=== PATIENT | female | born 1970 | race Caucasian/White ===

== ENCOUNTER → 2018-02-01 12:07 | Outpatient (CLI) | payer OTHER, SELFPAY ==
--- NOTE | 2018-02-01 | DI.MG.S_ITS ---
BILATERAL DIGITAL SCREENING MAMMOGRAM 3D/2D WITH CAD: 02/01/2018 CLINICAL: Routine screening. Comparison is made to exams dated: 12/08/2015 mammogram, 07/02/2011 mammogram, and 06/22/2010 mammogram - [facility]. The tissue of both breasts is heterogeneously dense. This may lower the sensitivity of mammography. Current study was also evaluated with a Computer Aided Detection (CAD) system. No significant masses, calcifications, or other findings are seen in either breast. There has been no significant interval change. IMPRESSION: NEGATIVE There is no mammographic evidence of malignancy. A 1 year screening mammogram is recommended. This exam was interpreted at Station ID: [id number]. NOTE: For mammograms, a report in lay terms will be sent to the patient. Approximately 15% of breast malignancies will not be visualized mammographically. In the management of a palpable breast mass, a negative mammogram must not discourage biopsy of a clinically suspicious lesion. Electronically Signed By: Jessy vargas/betty:02/03/2018 11:54:09 letter sent: Normal Exam ACR BI-RADS Category 1: Negative [id number]
== END ==
DX: Z12.31 Encounter for screening mammogram for malignant neoplasm of breast (principal)
CPT/HCPCS: 77063; 77067

== ENCOUNTER 2019-03-12 18:33 | Emergency (ER) | payer SELFPAY ==
--- NOTE | 2019-03-12 18:47 | ED_ITS ---
HPI - Abdominal Pain General Chief Complaint: Abdominal Pain Stated Complaint: feels like pancreas is going to explode Time Seen by Provider: 03/12/19 18:42 Source: patient and family Mode of arrival: Ambulatory Limitations: no limitations History of Present Illness HPI narrative: 49-year-old female former smoker and daily drinker presents with a chief complaint of severe epigastric and left upper quadrant pain for the past month or so. She has had nausea and vomiting and occasional loose stool. She states her symptoms are worse when she drinks or eats. She is not dizzy nor weak or lightheaded. She denies any chest pain or shortness of breath. She denies fever or chills. She has a history of pancreatitis and states this feels the same. Her pain is worse when she moves and improves with rest. MD complaint: abdominal pain Onset (ago): week(s) Pain Consistency: constant Location: epigastric Severity: severe Quality: stabbing Radiation: LUQ Relieving factors: rest Exacerbating factors: eating and movement Context: history of similar episodes Associated symptoms: nausea and vomiting Related Data Previous Rx's Medication Instructions Recorded hydrocodone-acetaminophen 1 tab PO Q4-6H PRN #10 tab 03/12/19 ondansetron 4 mg PO TID-QID PRN #10 tab 03/12/19 Allergies Allergy/AdvReac Type Severity Reaction Status Date / Time No Known Drug Allergies Allergy Verified 02/21/18 09:41 Review of Systems Constitutional Constitutional: Denies chills, Denies fatigue, Denies fever(s), Denies frequent falls, Denies lethargy and Denies weakness Eyes Eyes: Denies change in vision, Denies eye discharge, Denies irritation and Denies loss of vision ENT Ears, Nose, Mouth, and Throat: Denies change in voice, Denies dizziness, Denies neck pain, Denies sore throat and Denies throat swelling Cardiovascular Cardiovascular: Denies chest pain, Denies irregular heart rhythm, Denies lig htheadedness, Denies palpitations, Denies dyspnea, Denies dyspnea on exertion and Denies orthopnea Respiratory Respiratory: Denies cough, Denies dyspnea, Denies dyspnea on exertion and Denies wheezing Gastrointestinal Gastrointestinal: Reports abdominal pain, Denies change in bowel habits, Denies diarrhea, Reports nausea and Reports vomiting Genitourinary Genitourinary: Denies hematuria, Denies flank pain, Denies urinary incontinence and Denies urinary urgency Musculoskeletal Musculoskeletal: Denies back pain, Denies muscle weakness, Denies neck pain, Denies numbness and Denies tingling Integumentary/Breasts Skin/Breast: Denies pruritus, Denies erythema, Denies rash and Denies wounds Neurologic Neurologic: Denies behavioral changes, Denies confusion, Denies dizziness, Denies frequent falls, Denies loss of vision, Denies numbness, Denies tingling and Denies weakness Psychiatric Psychiatric: Denies anxiety, Denies behavioral changes, Denies confusion, Denies depression, Denies homicidal ideation and Denies suicidal ideation Endocrine Endocrine: Denies fatigue, Denies flushing and Denies palpitations Hematologic/Lymphatic Hematologic/Lymphatic: Denies easy bruising Allergic/Immunologic Allergic/Immunologic: Denies urticaria, Denies throat swelling and Denies wheezi ng Patient History Medical History Chicken pox (Resolved ~1977) Chronic back pain (Chronic ~2010) Surgical History Anesthesia (Resolved) Status post delivery (07/26/92) Family History Brother Age: 44 Diabetes mellitus Grandmother Diabetes mellitus Stroke Mother Age: 67 Diabetes mellitus Grandmother Age: 88 Diabetes mellitus Grandfather No problems noted. Exam Narrative Exam Narrative: GENERAL: [49] year old patient appears stated age. Well- nourished, well-developed patient, in mild distress. Rubbing her upper abdomen, holding an empty emesis bag HEAD: Atraumatic. Normocephalic. EYES: Pupils equal round and reactive. Extraocular motions intact. No scleral icterus. No injection or drainage. ENT: Nose without bleeding, purulent drainage. Throat without erythema, tonsillar hypertrophy or exudate. Airway patent. NECK: Trachea midline. Non tender CARDIOVASCULAR: Regular rate and rhythm without murmurs, gallops, or rubs. RESPIRATORY: Clear to auscultation. Breath sounds equal bilaterally. No wheezes, rales, or rhonchi. GASTROINTESTINAL: Abdomen soft, tender in the epigastric, nondistended. EXTREMITIES: No edema or joint tenderness. BACK: Nontender without deformity or crepitance. No flank tenderness. NEURO: AOx3. SKIN: No rash or erythema of visible areas Initial Vital Signs Initial Vital Signs: Vital Signs Temperature 98.5 F 03/12/19 19:00 Pulse Rate 103 H 03/12/19 19:00 Respiratory Rate 19 03/12/19 19:00 Blood Pressure 135/93 H 03/12/19 19:00 Pulse Oximetry 99 03/12/19 19:00 Course Orders Ordered: ED Orders 03/12/19 19:10 Complete Blood Count AUTO DIFF Stat Comprehensive Metabolic Panel Stat Ethanol (ETOH) Stat Lipase Stat Prothrombin Time INR Stat 03/12/19 19:43 US abdomen limited Stat Discontinued Medications Hydrocodone Bitart/Acetaminophen (Vicodin 5/325 Prepack) 1 bottle MISC SEEINSTR ONE Stop: 03/12/19 20:41 Last Admin: 03/12/19 20:59 Dose: 1 bottle Documented by: HOLLIS Hydromorphone HCl (Dilaudid) 0.5 mg IV NOW ONE Stop: 03/12/19 19:03 Last Admin: 03/12/19 19:29 Dose: 0.5 mg Documented by: JOSE DAVID Sodium Chloride (Normal Saline 0.9%) 500 mls @ 1,000 mls/hr IV BOLUS ONE Stop: 03/12/19 19:31 Last Infusion: 03/12/19 20:39 Dose: 1,000 mls/hr Documented by: JOSE DAVID Infusion: 03/12/19 20:38 Dose: 0 mls/hr Documented by: JOSE DAVID Admin: 03/12/19 19:29 Dose: 1,000 mls/hr Documented by: DORISR Ondansetron HCl (Zofran) 4 mg IV NOW ONE Stop: 03/12/19 19:03 Last Admin: 03/12/19 19:29 Dose: 4 mg Documented by: DORISR Ondansetron HCl (Zofran Odt Prepack) 1 bottle MISC SEEINSTR ONE Stop: 03/12/19 20:41 Last Admin: 03/12/19 20:58 Dose: 1 bottle Documented by: HOLLIS Pantoprazole Sodium (Protonix) 40 mg IV NOW ONE Stop: 03/12/19 19:03 Last Admin: 03/12/19 19:29 Dose: 40 mg Documented by: BTONER Vital Signs Vital signs: Vital Signs - 8 hr 03/12/19 19:00 03/12/19 20:30 03/12/19 21:00 Temperature 98.5 F Pulse Rate 103 H 74 78 Respiratory Rate 19 16 Blood Pressure 135/93 H 128/88 Blood Pressure [Left Arm] 128/88 Pulse Oximetry 99 96 MDM - Abdominal Pain Lab Data Result diagrams: 03/12/19 19:10 03/12/19 19:10 Labs: Lab Results 03/12/19 03/12/19 03/12/19 Range/Units 19:10 19:10 19:10 WBC 5.6 (4.5-11.0) X10^3/uL RBC 4.07 (4.0-5.2) X10^6/uL Hgb 12.5 (12.0-16.0) g/dL Hct 36.3 (36-46) % MCV 89.1 (80-100) fL MCH 30.6 (26-34) PG MCHC 34.4 (30-36) % RDW 17.3 H (11.6-14.8) % Plt Count 286 (150-400) X10^3/uL Neut % (Auto) 55.0 (50-75) % Lymph % (Auto) 32.6 (25-40) % [place] % (Auto) 9.8 (3-14) % Eos % (Auto) 1.2 L (2-4) % Baso % (Auto) 1.4 (0-2) % Neut # (Auto) 3100 (2939-1782) /uL Lymph # (Auto) 1800 (9566-7050) /uL [place] # (Auto) 500 (0-900) /uL Eos # (Auto) 100 (0-450) /uL Baso # (Auto) 100 (0-100) /uL PT 9.6 L (10.1-12.7) SECONDS INR 0.8 L (0.9-1.3) Sodium 145 (137-145) mmol/L Potassium 4.1 (3.4-5.1) mmol/L Chloride 107 (98-107) mmol/L Carbon Dioxide 25 (22-32) mmol/L BUN 18 H (7-17) mg/dL Creatinine 1.10 H (0.52-1.04) mg/dL Estimated GFR 52.8 L (>60) mL/min BUN/Creatinine Ratio 16.4 (6-22) Glucose 101 H (70-100) mg/dL Calcium 8.8 (8.4-10.2) mg/dL Total Bilirubin 0.4 (0.2-1.3) mg/dL AST 89 H (14-36) IU/L ALT 34 (<35) IU/L Alkaline Phosphatase 82 (38-126) U/L Total Protein 7.9 (6.3-8.2) g/dL Albumin 4.7 (3.5-5.0) g/dL Globulin 3.2 (1.7-4.1) g/dL Albumin/Globulin Ratio 1.5 (1.0-2.8) Lipase 495 H (23-300) U/L Ethyl Alcohol ( - 10) mg/dL 03/12/19 Range/Units 19:10 WBC (4.5-11.0) X10^3/uL RBC (4.0-5.2) X10^6/uL Hgb (12.0-16.0) g/dL Hct (36-46) % MCV (80-100) fL MCH (26-34) PG MCHC (30-36) % RDW (11.6-14.8) % Plt Count (150-400) X10^3/uL Neut % (Auto) (50-75) % Lymph % (Auto) (25-40) % [place] % (Auto) (3-14) % Eos % (Auto) (2-4) % Baso % (Auto) (0-2) % Neut # (Auto) (9711-4033) /uL Lymph # (Auto) (0560-2490) /uL [place] # (Auto) (0-900) /uL Eos # (Auto) (0-450) /uL Baso # (Auto) (0-100) /uL PT (10.1-12.7) SECONDS INR (0.9-1.3) Sodium (137-145) mmol/L Potassium (3.4-5.1) mmol/L Chloride (98-107) mmol/L Carbon Dioxide (22-32) mmol/L BUN (7-17) mg/dL Creatinine (0.52-1.04) mg/dL Estimated GFR (>60) mL/min BUN/Creatinine Ratio (6-22) Glucose (70-100) mg/dL Calcium (8.4-10.2) mg/dL Total Bilirubin (0.2-1.3) mg/dL AST (14-36) IU/L ALT (<35) IU/L Alkaline Phosphatase (38-126) U/L Total Protein (6.3-8.2) g/dL Albumin (3.5-5.0) g/dL Globulin (1.7-4.1) g/dL Albumin/Globulin Ratio (1.0-2.8) Lipase (23-300) U/L Ethyl Alcohol 294 H ( - 10) mg/dL MDM Narrative Medical decision making narrative: Patient with epigastric pain and strong history of alcohol abuse presents with 1 month of symptoms. The ultrasound notes a slightly dilated common bile duct which mentions stone cannot be ruled out, however bilirubin and alk-phos are unremarkable. Patient has near complete resolution of symptoms after above stated therapies. Patient has had her questions answered to her apparent satisfaction and though ETOH is elevated she has ability to demonstrate clear capacity. She speaks clearly without slurring of speech, understands diagnosis and return precautions and walks with a steady gait. Discharge Plan Departure Patient Disposition: Home Clinical Impression: Pancreatitis, acute Qualifiers: Pancreatitis type: alcohol induced Acute pancreatitis complication: unspecified Qualified Code(s): K85.20 - Alcohol induced acute pancreatitis without necrosis or infection Discharge Date/Time: 03/12/19 21:03 Instructions: DI for Pancreatitis Activity Restrictions/Additional Instructions: *You have been diagnosed with [ Acute Alcoholic Pancreatitis, with likely gastritis ] *What to do: *Take medications as directed *Follow up with your primary care provider in 2-3 days, call for an appointment. Let them know you were seen in the Emergency Department and that we ask that you be seen in follow up *Return to ER if you should have any new, worsening or concerning symptoms 1. Drink plenty of fluids with frequent small sips. 2. For the next 24 hours a clear liquid diet is advised. After that please employ a brat diet which would include bananas, rice, apples, toast. 3. Please take medications as directed. 4. Please follow-up with your doctor in the next 1-2 days. Call the office for an appointment. 5. Please return to the emergency Department for any worsening or persistent symptoms, such as increasing pain or fever. Prescriptions: New hydrocodone-acetaminophen 5-325 mg tablet 1 tab PO Q4-6H PRN (Reason: pain) Qty: 10 RF: 0 ondansetron 4 mg tablet,disintegrating 4 mg PO TID-QID PRN (Reason: nausea and vomiting) Qty: 10 RF: 0 Referrals: [facility] [Outside] Aguilar Garcia MD [Physician] -
[2019-03-12 19:00] VITALS: BP 135/93; PULSE 103; RESP 19; TEMP 36.9; O2SAT 99
[2019-03-12 19:25] LABS: Add Manual Diff / Slide Review NO; Basophils Absolute Auto 100 /uL (0-100); Basophils Percent Auto 1.4 % (0-2); Eosinophils Absolute Auto 100 /uL (0-450); Eosinophils Percent Auto 1.2 % (2-4); Hematocrit 36.3 % (36-46); Hemoglobin 12.5 g/dL (12.0-16.0); Lymphocytes Absolute Auto 1800 /uL (1100-4500); Lymphocytes Percent Auto 32.6 % (25-40); Mean Corpuscular HGB Conc 34.4 % (30-36); Mean Corpuscular Hemoglobin 30.6 PG (26-34); Mean Corpuscular Volume 89.1 fL (80-100); Monocytes Absolute Auto 500 /uL (0-900); Monocytes Percent Auto 9.8 % (3-14); Neutrophils Absolute Auto 3100 /uL (1500-7000); Platelet Count 286 X10^3/uL (150-400); Red Blood Cell Count 4.07 X10^6/uL (4.0-5.2); Red Cell Distribution Width 17.3 % (11.6-14.8); White Blood Cell Count 5.6 X10^3/uL (4.5-11.0)
[2019-03-12] MEDS: HYDROMORPHONE 0.5 MG INJ IV (19:29)
[2019-03-12] MEDS: ONDANSETRON 4 MG/2 ML INJ IV (19:29)
[2019-03-12] MEDS: PANTOPRAZOLE 40 MG VIAL IV (19:29)
[2019-03-12] MEDS: SODIUM CHLORIDE 0.9% 500 ML 1000 ML IV (19:29)
[2019-03-12 19:36] LABS: Alanine Aminotransferase 34 IU/L (<35); Albumin 4.7 g/dL (3.5-5.0); Albumin Globulin Ratio 1.5 (1.0-2.8); Alkaline Phosphatase 82 U/L (38-126); Aspartate Aminotransferase 89 IU/L (14-36); BUN Creatinine Ratio 16.4 (6-22); Bilirubin Total 0.4 mg/dL (0.2-1.3); Blood Urea Nitrogen 18 mg/dL (7-17); Calcium 8.8 mg/dL (8.4-10.2); Carbon Dioxide 25 mmol/L (22-32); Chloride 107 mmol/L (98-107); Estimated Glomerular Filt Rate 52.8 mL/min (>60); Ethanol (ETOH) 294 mg/dL; Globulin 3.2 g/dL (1.7-4.1); Glucose 101 mg/dL (70-100); HEMOLYSIS < 15 (0-50); Lipase 495 U/L (23-300); Potassium 4.1 mmol/L (3.4-5.1); Sodium 145 mmol/L (137-145); Total Protein 7.9 g/dL (6.3-8.2)
--- NOTE | 2019-03-12 19:43 | DI.US.S_ITS ---
PROCEDURE: US ABDOMEN LIMITED INDICATIONS: severe epigastric pain, elevated Lipase TECHNIQUE: Real-time focused scanning was performed of the gallbladder, with image documentation. COMPARISON: None. FINDINGS: The gallbladder is distended with multiple mobile echogenic non-shadowing foci compatible with gallstones or echogenic sludge. No gallbladder wall thickening or pericholecystic fluid. No reported sonographic Smith's sign. No definite intrahepatic biliary ductal dilatation. There is dilatation of the extrahepatic ducts, with the common bile duct measuring up to 9 mm. No discrete intraluminal stones visualized. The visualized pancreas demonstrates no peripancreatic fluid collections. The pancreatic duct measures up to approximately 3 mm. IMPRESSION: 1. Cholelithiasis or biliary sludge in the gallbladder without definite evidence of cholecystitis. 2. Biliary ductal dilatation with the common bile duct measuring up to 9 mm. A distal obstructing stone cannot be excluded. Recommend correlation with laboratory values and if indicated further evaluation may be obtained with MRCP. Dictated by: Yasmany Jerez M.D. on 03/12/2019 at 21:24 Approved by: Yasmany Jerez M.D. on 03/12/2019 at 21:28
[2019-03-12 19:45] LABS: INR 0.8 (0.9-1.3); Prothrombin Time 9.6 SECONDS (10.1-12.7)
[2019-03-12 20:30] VITALS: BP 128/88; PULSE 74
--- NOTE | 2019-03-12 20:55 | PC.NURSE ---
pt states thinks she has pancreatitis due to alcohol use.
[2019-03-12] MEDS: ONDANSETRON 4 MG ODT PREPACK 1 BOTTLE MISC (20:58)
[2019-03-12] MEDS: HYDROCODONE/ACET 5/325 PREPACK 1 BOTTLE MISC (20:59)
[2019-03-12 21:00] VITALS: BP 128/88; PULSE 78; RESP 16; O2SAT 96
== END 2019-03-12 21:03 | disposition home or self-care (01) ==
PROVIDERS: Emergency Provider Emergency Medicine
DX: K85.20 Alcohol induced acute pancreatitis without necrosis or infection (principal); R11.2 Nausea with vomiting, unspecified
CPT/HCPCS: 36415; 76705; 80053; 80320; 83690; 85025; 85610; 96361; 96374; 96375; 99283; 99284; C9113; J1170; J2405

== ENCOUNTER 2020-07-03 15:18 | Emergency (ER) | payer SELFPAY ==
[2020-07-03] VITALS (9 sets, daily range): BP systolic 117–154; BP diastolic 65–87; PULSE 85–109; RESP 18–26; TEMP 36.6; O2SAT 96–99
--- NOTE | 2020-07-03 15:44 | DI.RAD.S_ITS ---
PROCEDURE: XR CHEST 1V INDICATIONS: chest pain, GI bleed TECHNIQUE: One view of the chest was acquired. COMPARISON: [facility], , CHEST 2 VIEW, 04/16/2013, 14:47. FINDINGS: Surgical changes and devices: None. Lungs and pleura: Lungs are clear. No pleural effusions or pneumothorax. Mediastinum: Mediastinal contours appear normal. Heart size is normal. Bones and chest wall: No suspicious bony lesions. Overlying soft tissues appear unremarkable. IMPRESSION: No acute cardiopulmonary abnormality. Dictated by: Kin Fernando M.D. on 07/03/2020 at 15:13 Approved by: Kin Fernando M.D. on 07/03/2020 at 15:14
[2020-07-03] MEDS: SODIUM CHLORIDE 0.9% 1,000 ML 1000 ML IV (15:50)
[2020-07-03 15:55] LABS: Add Manual Diff / Slide Review NO; Basophils Absolute Auto 100 /uL (0-100); Basophils Percent Auto 0.7 % (0-2); Eosinophils Absolute Auto 0 /uL (0-450); Eosinophils Percent Auto 0.2 % (2-4); Hemoglobin 13.3 g/dL (12.0-16.0); Lymphocytes Absolute Auto 1600 /uL (1100-4500); Lymphocytes Percent Auto 20.8 % (25-40); Mean Corpuscular HGB Conc 33.3 % (30-36); Mean Corpuscular Hemoglobin 29.8 PG (26-34); Mean Corpuscular Volume 89.5 fL (80-100); Monocytes Absolute Auto 500 /uL (0-900); Monocytes Percent Auto 6.3 % (3-14); Neutrophils Absolute Auto 5600 /uL (1500-7000); Platelet Count 310 X10^3/uL (150-400); Red Blood Cell Count 4.46 X10^6/uL (4.0-5.2); Red Cell Distribution Width 15.6 % (11.6-14.8); White Blood Cell Count 7.7 X10^3/uL (4.5-11.0)
[2020-07-03] MEDS: ONDANSETRON 4 MG/2 ML INJ IV (16:00)
[2020-07-03] MEDS: PANTOPRAZOLE 40 MG VIAL IV (16:00)
[2020-07-03 16:02] LABS: Prothrombin Time 11.3 SECONDS (10.1-12.7)
[2020-07-03 16:05] LABS: PTT Partial Thromboplastin Tim 30 SECONDS (26.4-36.2)
[2020-07-03 16:06] LABS: Alanine Aminotransferase 13 IU/L (<35); Albumin Globulin Ratio 1.4 (1.0-2.8); Alkaline Phosphatase 76 U/L (38-126); Aspartate Aminotransferase 33 IU/L (14-36); BUN Creatinine Ratio 16.9 (6-22); Bilirubin Total 0.5 mg/dL (0.2-1.3); Blood Urea Nitrogen 12 mg/dL (7-17); Calcium 9.2 mg/dL (8.4-10.2); Carbon Dioxide 20 mmol/L (22-32); Chloride 105 mmol/L (98-107); Estimated Glomerular Filt Rate > 60.0 mL/min (>60); Globulin 3.5 g/dL (1.7-4.1); Glucose 113 mg/dL (70-100); HEMOLYSIS 24 (0-50); Lipase 303 U/L (23-300); Potassium 4.6 mmol/L (3.4-5.1); Sodium 142 mmol/L (137-145); Total Protein 8.5 g/dL (6.3-8.2)
[2020-07-03] MEDS: PANTOPRAZOLE 80 MG in SODIUM CHLORIDE 0.9% 100 ML 10 ML IV (16:10)
[2020-07-03 16:28] LABS: Ethanol (ETOH) 346 mg/dL
--- NOTE | 2020-07-03 16:32 | DI.CT.S_ITS ---
PROCEDURE: CT ABDOMEN PELVIS W CON INDICATIONS: GI bleed, ETOH user, varieces? TECHNIQUE: After the administration of intravenous contrast, 5 mm thick sections acquired from the diaphragm to the symphysis. 5 mm coronal and sagittal reformats were acquired. For radiation dose reduction, the following was used: automated exposure control, adjustment of mA and/or kV according to patient size. COMPARISON: None. FINDINGS: Image quality: Excellent. ABDOMEN: Lung bases: Lung bases are clear. Heart size is normal. Solid organs: Liver is normal in size. Hepatic steatosis suspected. Gallbladder is decompressed. Biliary system is non dilated. Pancreas enhances normally. Spleen is normal in size and enhancement. No adrenal nodules. Kidneys demonstrate normal size and enhancement, without hydronephrosis. Peritoneum and bowel: Bowel loops demonstrate normal wall thickness and caliber. Normal appendix. Diverticulosis. No diverticulitis. No free fluid or air. Nodes and vessels: No retroperitoneal or mesenteric adenopathy by size criteria. Aorta and inferior vena cava are normal in size. Portal vein is patent. Question of recannulization of the periumbilical vein. Miscellaneous: No ventral hernias. PELVIS: Genitourinary: Bladder wall thickness is normal. Anteverted uterus. Miscellaneous: No inguinal hernias or adenopathy. Bones: No suspicious bony lesions. T12 bone island. Bilateral L5 pars defect with 7 mm of anterolisthesis of L5 on S1. No vertebral body compression fractures. IMPRESSION: No acute abnormality identified. No free fluid. Question of recannulization of the periumbilical vein. No definite varices. Dictated by: Kin Fernando M.D. on 07/03/2020 at 16:58 Approved by: Kin Fernando M.D. on 07/03/2020 at 17:04
--- NOTE | 2020-07-03 16:34 | ED.GIBLEED ---
HPI - GI Bleed <EVIE Lugo - Last Filed: 07/03/20 21:22> General Chief complaint: GI Bleed Stated complaint: vomiting blood, buring BM, past week Time Seen by Provider: 07/03/20 15:31 Source: patient Mode of arrival: Ambulatory Limitations: no limitations History of Present Illness HPI Narrative: This is a 50 year female, smoker, who has history of daily alcohol use presents to ED with ex- with chief complain of epigastric burning discomfort, nausea, vomiting, diarrhea for 7 days. Patient reports had dark color blood with emesis during last 3 days. Patient reports has emesis upto 3 times a day. She is not sure of blood in stools. Patient denies ill contacts, family member has similar symptoms, eating bad food, recent foreign travel, recent camping or is living in a farm. Patient had a similar symptoms about 1-2 years ago but was not hospitalized or had transfusion in the past. Patient denies taking anticoagulants or antiplatelets, or chronic NSAID use. Patient denies fever, chills. Reports epigastric pain with mild short of breath and lightheaded. Patient also reports urinary symptoms such as dysuria, urinary frequency, urgency. Patient admits drinking 2 glasses of wine this morning and difficulty obtaining ETOH average consumption history. Related Data Previous Rx's Medication Instructions Recorded hydrocodone-acetaminophen 1 tab PO Q4-6H PRN #10 tab 03/12/19 ondansetron 4 mg PO TID-QID PRN #10 tab 03/12/19 ondansetron 4 mg PO Q8-12H PRN #10 tab 07/03/20 pantoprazole [Protonix] 40 mg PO DAILY #14 tab 07/03/20 Allergies Allergy/AdvReac Type Severity Reaction Status Date / Time No Known Drug Allergies Allergy Verified 02/21/18 09:41 Review of Systems <EVIE Lugo - Last Filed: 07/03/20 21:22> Review of Systems Narrative: General: Denies fever, chills, fatigue, malaise, sweats. HEENT: Denies sinus pain, ear pain, sore throat, difficulty swallowing, dizziness. Respiratory: See HPI Cardiovascular: Denies chest pain, palpitations, orthopnea, edema. Gastrointestinal: See HPI : See HPI Musculoskeletal: Denies weakness, joint pain or bony pain. Skin: Denies rash, skin lesions, or other. Neurologic: Denies weakness, headache, numbness, change in speech, confusion, seizures, incoordination. Psychiatric: No concerning psychosocial issues. 12-point review of systems is negative except for those stated above. Patient History <EVIE Lugo - Last Filed: 07/03/20 21:22> Medical History Chicken pox (~1977) Chronic back pain (~2010) Surgical History Anesthesia Status post delivery (07/26/92) Family History Brother Age: 45 Diabetes mellitus Grandmother Diabetes mellitus Stroke Mother Age: 68 Diabetes mellitus Grandmother Age: 89 Diabetes mellitus Grandfather No problems noted. Social History Smoking Status: Current some day smoker Smoking Status: Current some day smoker alcohol intake frequency: 3 or more drinks per day Exam <EVIE Lugo - Last Filed: 07/03/20 21:22> Narrative Exam Narrative: GEN: Alert, oriented x 3, well nourished, and in moderate discomfort with facial grimacing. ETOH on breath. Head: Normal cephalic, atraumatic. No scalp or temporal tenderness, palpable mass or rash. EYES: Pupils are equal, round, and reactive to light and accommodation. Extraocular muscles are intact bilaterally. There is no subconjunctival hemorrhage, exudate and sclera non-icteric. ENT: Hearing grossly intact. Mucous membrane dry, no mucosal lesion. Throat without erythema, tonsillar hypertrophy or exudate. Uvula in midline, airway patent. Neck: Trachea in midline. No JVD, non-tender without lymphadenopathy. No masses or thyroid megaly. Supple, non-tender and no meningeal signs. CARDIAC: Normal regular rate and rhythm without murmurs, gallops, or rubs. No chest wall tenderness. No peripheral edema, cyanosis or pallor. Capillary refill is less than 2 seconds. RESPIRATORY: Lungs are clear to auscultate bilaterally. No cough, wheezes, rales, or rhonchi. No stridor, respiratory distress, increase work of breathing, or accessary muscle used. ABD: Abdomen soft and non-distended. Epigastric tender to palpate. No guarding. Bowel sounds are normal in all 4 quadrants. There is no palpable masses or organomegaly. EXT: Full painless ROM of all extremities with no loss of sensation, strength, effusion or edema. SKIN: Warm, dry, normal color for patient. No erythema, lesions or rash over visible areas. BACK: Nontender without deformity or crepitance. No flank tenderness. NEUROLOGICAL: Alert and oriented to place, time and person. Sensation and motor function intact bilaterally. No facial droops, dysphasia. Initial Vital Signs Initial Vital Signs: Vital Signs Temperature 97.9 F 07/03/20 15:26 Pulse Rate 104 H 07/03/20 15:26 Respiratory Rate 18 07/03/20 15:26 Blood Pressure 154/87 H 07/03/20 15:26 Pulse Oximetry 96 07/03/20 15:26 Psych Appearance: grossly normal Mental Status: mental status grossly normal Speech and Movement: speech and movement normal Mood: irritable mood Attitude: guarded and refuses to answer (evasive communicating and some questions when asked about HPI) Thought Process: tangential Judgment: fair <Gisell Lozano DO - Last Filed: 07/04/20 08:02> Initial Vital Signs Initial Vital Signs: Vital Signs Temperature 97.9 F 07/03/20 15:26 Pulse Rate 104 H 07/03/20 15:26 Respiratory Rate 18 07/03/20 15:26 Blood Pressure 154/87 H 07/03/20 15:26 Pulse Oximetry 96 07/03/20 15:26 Scores <EVIE Lugo - Last Filed: 07/03/20 21:22> GCS Danielle coma scale eye opening: Spontaneous Danielle coma scale verbal response: Orientated Danielle coma scale motor response: Obey commands Danielle coma scale total score: 15 Course <EVIE Lugo - Last Filed: 07/03/20 21:22> Orders Ordered: Discontinued Medications Al Hydrox/Mg Hydrox/Simethicone (Mag Hydrox/Alum/Simeth 30 Ml Udc) 30 ml PO NOW ONE Stop: 07/03/20 16:49 Last Admin: 07/03/20 17:38 Dose: Not Given Documented by: FRANTZ Al Hydrox/Mg Hydrox/Simethicone 20 ml/ Lidocaine HCl 15 ml 0 ml PO NOW ONE Stop: 07/03/20 16:54 Last Admin: 07/03/20 17:26 Dose: 20 ml Documented by: FRANTZ Hydromorphone HCl (Hydromorphone 0.5 Mg Inj) 0.5 mg IV NOW ONE Stop: 07/03/20 16:33 Last Admin: 07/03/20 16:51 Dose: Not Given Documented by: FRANTZ Sodium Chloride (Normal Saline 0.9%) 1,000 mls @ 1,000 mls/hr IV BOLUS ONE Stop: 07/03/20 16:42 Last Infusion: 07/03/20 16:43 Dose: 0 mls/hr Documented by: Admin: 07/03/20 15:50 Dose: 1,000 mls/hr Documented by: FRANTZ Pantoprazole Sodium 80 mg/ (Sodium Chloride) 100 mls @ 10 mls/hr IV CONT OSIRIS Last Infusion: 07/03/20 18:48 Dose: 0 mg/hr, 0 mls/hr Documented by: Admin: 07/03/20 16:10 Dose: 8 mg/hr, 10 mls/hr Documented by: FRANTZ Ondansetron HCl (Ondansetron 4 Mg/2 Ml Inj) 4 mg IV NOW ONE Stop: 07/03/20 15:44 Last Admin: 07/03/20 16:00 Dose: 4 mg Documented by: MAGUI Pantoprazole Sodium (Pantoprazole 40 Mg Vial) 40 mg IV NOW ONE Stop: 07/03/20 15:44 Last Admin: 07/03/20 16:00 Dose: 40 mg Documented by: MAGUI Reevaluation(s) Reevaluation #1: Rectal exam done with VIRI Price's assistance. Hemoccult negative Time: 16:35 Vital Signs Vital signs: Vital Signs - 8 hr 07/03/20 15:26 07/03/20 15:47 07/03/20 15:49 Temperature 97.9 F Pulse Rate 104 H 106 H 106 H Respiratory Rate 18 26 H 20 Blood Pressure 154/87 H 142/84 H Pulse Oximetry 96 96 97 07/03/20 16:00 07/03/20 16:30 07/03/20 17:00 Temperature Pulse Rate 85 94 H 93 H Respiratory Rate 20 23 21 Blood Pressure 126/73 124/71 117/65 Pulse Oximetry 97 99 96 07/03/20 17:30 07/03/20 17:56 07/03/20 18:39 Temperature Pulse Rate 92 H 109 H Respiratory Rate 19 Blood Pressure 123/76 Pulse Oximetry 96 97 <Gisell Lozano, DO - Last Filed: 07/04/20 08:02> Orders Ordered: Discontinued Medications Al Hydrox/Mg Hydrox/Simethicone (Mag Hydrox/Alum/Simeth 30 Ml Udc) 30 ml PO NOW ONE Stop: 07/03/20 16:49 Last Admin: 07/03/20 17:38 Dose: Not Given Documented by: FRANTZ Al Hydrox/Mg Hydrox/Simethicone 20 ml/ Lidocaine HCl 15 ml 0 ml PO NOW ONE Stop: 07/03/20 16:54 Last Admin: 07/03/20 17:26 Dose: 20 ml Documented by: FRANTZ Hydromorphone HCl (Hydromorphone 0.5 Mg Inj) 0.5 mg IV NOW ONE Stop: 07/03/20 16:33 Last Admin: 07/03/20 16:51 Dose: Not Given Documented by: FRANTZ Sodium Chloride (Normal Saline 0.9%) 1,000 mls @ 1,000 mls/hr IV BOLUS ONE Stop: 07/03/20 16:42 Last Infusion: 07/03/20 16:43 Dose: 0 mls/hr Documented by: Admin: 07/03/20 15:50 Dose: 1,000 mls/hr Documented by: FRANTZ Pantoprazole Sodium 80 mg/ (Sodium Chloride) 100 mls @ 10 mls/hr IV CONT OSIRIS Last Infusion: 07/03/20 18:48 Dose: 0 mg/hr, 0 mls/hr Documented by: Admin: 07/03/20 16:10 Dose: 8 mg/hr, 10 mls/hr Documented by: FRANTZ Ondansetron HCl (Ondansetron 4 Mg/2 Ml Inj) 4 mg IV NOW ONE Stop: 07/03/20 15:44 Last Admin: 07/03/20 16:00 Dose: 4 mg Documented by: MAGUI Pantoprazole Sodium (Pantoprazole 40 Mg Vial) 40 mg IV NOW ONE Stop: 07/03/20 15:44 Last Admin: 07/03/20 16:00 Dose: 40 mg Documented by: MAGUI Vital Signs Vital signs: Vital Signs - 8 hr 07/03/20 15:26 07/03/20 15:47 07/03/20 15:49 Temperature 97.9 F Pulse Rate 104 H 106 H 106 H Respiratory Rate 18 26 H 20 Blood Pressure 154/87 H 142/84 H Pulse Oximetry 96 96 97 07/03/20 16:00 07/03/20 16:30 07/03/20 17:00 Temperature Pulse Rate 85 94 H 93 H Respiratory Rate 20 23 21 Blood Pressure 126/73 124/71 117/65 Pulse Oximetry 97 99 96 07/03/20 17:30 07/03/20 17:56 07/03/20 18:39 Temperature Pulse Rate 92 H 109 H Respiratory Rate 19 Blood Pressure 123/76 Pulse Oximetry 96 97 MDM - GI Bleed <EVIE Lugo - Last Filed: 07/03/20 21:22> Differential Diagnosis Differential diagnosis: Likely hemorrhoids, esophageal varices, gastritis, Regina-Caballero syndrome, Upper gastrointestinal hemorrhage, Lower gastrointestinal hemorrhage and other (Gastroenteritis) Medical Records Attestation: I reviewed the patient's medical records. Lab Data Attestation: I reviewed the patient's lab results. Result diagrams: 07/03/20 15:42 07/03/20 15:42 Labs: Lab Results 07/03/20 07/03/20 07/03/20 Range/Units 15:42 15:42 15:42 WBC 7.7 (4.5-11.0) X10^3/uL RBC 4.46 (4.0-5.2) X10^6/uL Hgb 13.3 (12.0-16.0) g/dL Hct 40.0 (36-46) % MCV 89.5 (80-100) fL MCH 29.8 (26-34) PG MCHC 33.3 (30-36) % RDW 15.6 H (11.6-14.8) % Plt Count 310 (150-400) X10^3/uL Neut % (Auto) 72.0 (50-75) % Lymph % (Auto) 20.8 L (25-40) % [place] % (Auto) 6.3 (3-14) % Eos % (Auto) 0.2 L (2-4) % Baso % (Auto) 0.7 (0-2) % Neut # (Auto) 5600 (7613-8060) /uL Lymph # (Auto) 1600 (3110-6733) /uL [place] # (Auto) 500 (0-900) /uL Eos # (Auto) 0 (0-450) /uL Baso # (Auto) 100 (0-100) /uL PT 11.3 (10.1-12.7) SECONDS INR 1.0 (0.9-1.3) APTT 30 (26.4-36.2) SECONDS Sodium 142 (137-145) mmol/L Potassium 4.6 (3.4-5.1) mmol/L Chloride 105 (98-107) mmol/L Carbon Dioxide 20 L (22-32) mmol/L BUN 12 (7-17) mg/dL Creatinine 0.71 (0.52-1.04) mg/dL Estimated GFR > 60.0 (>60) mL/min BUN/Creatinine Ratio 16.9 (6-22) Glucose 113 H (70-100) mg/dL Calcium 9.2 (8.4-10.2) mg/dL Magnesium 2.0 (1.6-2.3) mg/dL Total Bilirubin 0.5 (0.2-1.3) mg/dL AST 33 (14-36) IU/L ALT 13 (<35) IU/L Alkaline Phosphatase 76 (38-126) U/L Total Protein 8.5 H (6.3-8.2) g/dL Albumin 5.0 (3.5-5.0) g/dL Globulin 3.5 (1.7-4.1) g/dL Albumin/Globulin Ratio 1.4 (1.0-2.8) Lipase 303 H (23-300) U/L Ethyl Alcohol ( - 10) mg/dL Blood Type Antibody Screen 07/03/20 07/03/20 Range/Units 15:42 15:42 WBC (4.5-11.0) X10^3/uL RBC (4.0-5.2) X10^6/uL Hgb (12.0-16.0) g/dL Hct (36-46) % MCV (80-100) fL MCH (26-34) PG MCHC (30-36) % RDW (11.6-14.8) % Plt Count (150-400) X10^3/uL Neut % (Auto) (50-75) % Lymph % (Auto) (25-40) % [place] % (Auto) (3-14) % Eos % (Auto) (2-4) % Baso % (Auto) (0-2) % Neut # (Auto) (1047-9314) /uL Lymph # (Auto) (0576-2926) /uL [place] # (Auto) (0-900) /uL Eos # (Auto) (0-450) /uL Baso # (Auto) (0-100) /uL PT (10.1-12.7) SECONDS INR (0.9-1.3) APTT (26.4-36.2) SECONDS Sodium (137-145) mmol/L Potassium (3.4-5.1) mmol/L Chloride (98-107) mmol/L Carbon Dioxide (22-32) mmol/L BUN (7-17) mg/dL Creatinine (0.52-1.04) mg/dL Estimated GFR (>60) mL/min BUN/Creatinine Ratio (6-22) Glucose (70-100) mg/dL Calcium (8.4-10.2) mg/dL Magnesium (1.6-2.3) mg/dL Total Bilirubin (0.2-1.3) mg/dL AST (14-36) IU/L ALT (<35) IU/L Alkaline Phosphatase (38-126) U/L Total Protein (6.3-8.2) g/dL Albumin (3.5-5.0) g/dL Globulin (1.7-4.1) g/dL Albumin/Globulin Ratio (1.0-2.8) Lipase (23-300) U/L Ethyl Alcohol 346 H ( - 10) mg/dL Blood Type O Positive Antibody Screen Negative Point of Care Testing Test Results Negative Stool Occult Blood Negative Urine Dip Bedside Urine Glucose Negative Bedside Urine Bilirubin - Negative Bedside Urine Ketone - Negative Urine Specific [place] 1.015 Bedside Urine Occult Blood +/- Bedside Urine pH 6 Bedside Urine Protein - Negative Bedside Urine Urobilinogen - Negative Bedside Urine Nitrite - Negative Bedside Urine Leukocytes - Negative Esterase Imaging Data CT scan - abdomen/pelvis: Radiologist's Impression: [address] [id number] Scan ReportSigned Patient: Trish Del RealMR#: [id number]: 1970Acct:[id number]/Sex: 50 / FDate of Service: 07/03/20Loc: EDAccession Number: [id number] Procedure: CT abdomen pelvis w con Ordering Provider: Wesly Nickerson PROCEDURE: CT ABDOMEN PELVIS W CON INDICATIONS: GI bleed, ETOH user, varieces? TECHNIQUE: After the administration of intravenous contrast, 5 mm thick sections acquired from the diaphragm to the symphysis. 5 mm coronal and sagittal reformats were acquired. For radiation dose reduction, the following was used: automated exposure control, adjustment of mA and/or kV according to patient size. COMPARISON: None. FINDINGS: Image quality: Excellent. ABDOMEN: Lung bases: Lung bases are clear. Heart size is normal. Solid organs: Liver is normal in size. Hepatic steatosis suspected. Gallbladder is decompressed. Biliary system is non dilated. Pancreas enhances normally. Spleen is normal in size and enhancement. No adrenal nodules. Kidneys demonstrate normal size and enhancement, without hydronephrosis. Peritoneum and bowel: Bowel loops demonstrate normal wall thickness and caliber. Normal appendix. Diverticulosis. No diverticulitis. No free fluid or air. Nodes and vessels: No retroperitoneal or mesenteric adenopathy by size criteria. Aorta and inferior vena cava are normal in size. Portal vein is patent. Question of recannulization of the periumbilical vein. Miscellaneous: No ventral hernias. PELVIS: Genitourinary: Bladder wall thickness is normal. Anteverted uterus. Miscellaneous: No inguinal hernias or adenopathy. Bones: No suspicious bony lesions. T12 bone island. Bilateral L5 pars defect with 7 mm of anterolisthesis of L5 on S1. No vertebral body compression fractures. IMPRESSION: No acute abnormality identified. No free fluid. Question of recannulization of the periumbilical vein. No definite varices. Dictated by: Kin Fernando M.D. on 07/03/2020 at 16:58 Approved by: Kin Fernando M.D. on 07/03/2020 at 17:04 [facility] Narrative Medical decision making narrative: This is a 50 year female daily alcohol drinker presents to ED with epigastric pain and nausea, vomiting, diarrhea for last 7 days and reports dark blood emesis last 3 days with dizziness, and some shortness of breath. She reports about average 3 episodes of emesis. Epigastric tender to palpate. Skin pink, dry, warm and no paleness to subconjunctival. Lips are dry. Hemoccult test was negative for blood. Labs unremarkable. Stable H&H of 13.3/40.4 without leukocytosis. Normal coag test. Chemistry test was unremarkable. Normal kidney and liver function test with mildy elevated lipase of 303. Patient received IV fluid infusion, Protonix bolus and drips while in ED. patient given GI cocktail reports pain improved. Concerned for acute abdominal etiology, abdomen/pelvis CT ordered which was negative for acute findings. Held narcotic pain medication after patient's ETOH level came back as 346 for pain management. Urine test no indications for infection and test was negative. Patient had no vomiting while in ED and improved symptoms before leaving ED and she was able to tolerate ice chips. Patient advised to avoid alcohol drinks, spicy, oily, acidic food and to take Protonix for next couple of weeks. Patient discharged to home with Zofran for as needed use so she can hydrate adequately. Return precautions discussed with patient and she verbalized understanding in agreement with the treatment plan. <Gisell Lozano, DO - Last Filed: 07/04/20 08:02> Lab Data Labs: Lab Results 07/03/20 07/03/20 07/03/20 Range/Units 15:42 15:42 15:42 WBC 7.7 (4.5-11.0) X10^3/uL RBC 4.46 (4.0-5.2) X10^6/uL Hgb 13.3 (12.0-16.0) g/dL Hct 40.0 (36-46) % MCV 89.5 (80-100) fL MCH 29.8 (26-34) PG MCHC 33.3 (30-36) % RDW 15.6 H (11.6-14.8) % Plt Count 310 (150-400) X10^3/uL Neut % (Auto) 72.0 (50-75) % Lymph % (Auto) 20.8 L (25-40) % [place] % (Auto) 6.3 (3-14) % Eos % (Auto) 0.2 L (2-4) % Baso % (Auto) 0.7 (0-2) % Neut # (Auto) 5600 (3875-9602) /uL Lymph # (Auto) 1600 (5993-9157) /uL [place] # (Auto) 500 (0-900) /uL Eos # (Auto) 0 (0-450) /uL Baso # (Auto) 100 (0-100) /uL PT 11.3 (10.1-12.7) SECONDS INR 1.0 (0.9-1.3) APTT 30 (26.4-36.2) SECONDS Sodium 142 (137-145) mmol/L Potassium 4.6 (3.4-5.1) mmol/L Chloride 105 (98-107) mmol/L Carbon Dioxide 20 L (22-32) mmol/L BUN 12 (7-17) mg/dL Creatinine 0.71 (0.52-1.04) mg/dL Estimated GFR > 60.0 (>60) mL/min BUN/Creatinine Ratio 16.9 (6-22) Glucose 113 H (70-100) mg/dL Calcium 9.2 (8.4-10.2) mg/dL Magnesium 2.0 (1.6-2.3) mg/dL Total Bilirubin 0.5 (0.2-1.3) mg/dL AST 33 (14-36) IU/L ALT 13 (<35) IU/L Alkaline Phosphatase 76 (38-126) U/L Total Protein 8.5 H (6.3-8.2) g/dL Albumin 5.0 (3.5-5.0) g/dL Globulin 3.5 (1.7-4.1) g/dL Albumin/Globulin Ratio 1.4 (1.0-2.8) Lipase 303 H (23-300) U/L Ethyl Alcohol ( - 10) mg/dL Blood Type Antibody Screen 07/03/20 07/03/20 Range/Units 15:42 15:42 WBC (4.5-11.0) X10^3/uL RBC (4.0-5.2) X10^6/uL Hgb (12.0-16.0) g/dL Hct (36-46) % MCV (80-100) fL MCH (26-34) PG MCHC (30-36) % RDW (11.6-14.8) % Plt Count (150-400) X10^3/uL Neut % (Auto) (50-75) % Lymph % (Auto) (25-40) % [place] % (Auto) (3-14) % Eos % (Auto) (2-4) % Baso % (Auto) (0-2) % Neut # (Auto) (3935-0714) /uL Lymph # (Auto) (9333-8594) /uL [place] # (Auto) (0-900) /uL Eos # (Auto) (0-450) /uL Baso # (Auto) (0-100) /uL PT (10.1-12.7) SECONDS INR (0.9-1.3) APTT (26.4-36.2) SECONDS Sodium (137-145) mmol/L Potassium (3.4-5.1) mmol/L Chloride (98-107) mmol/L Carbon Dioxide (22-32) mmol/L BUN (7-17) mg/dL Creatinine (0.52-1.04) mg/dL Estimated GFR (>60) mL/min BUN/Creatinine Ratio (6-22) Glucose (70-100) mg/dL Calcium (8.4-10.2) mg/dL Magnesium (1.6-2.3) mg/dL Total Bilirubin (0.2-1.3) mg/dL AST (14-36) IU/L ALT (<35) IU/L Alkaline Phosphatase (38-126) U/L Total Protein (6.3-8.2) g/dL Albumin (3.5-5.0) g/dL Globulin (1.7-4.1) g/dL Albumin/Globulin Ratio (1.0-2.8) Lipase (23-300) U/L Ethyl Alcohol 346 H ( - 10) mg/dL Blood Type O Positive Antibody Screen Negative Point of Care Testing Test Results Negative Stool Occult Blood Negative Urine Dip Bedside Urine Glucose Negative Bedside Urine Bilirubin - Negative Bedside Urine Ketone - Negative Urine Specific [place] 1.015 Bedside Urine Occult Blood +/- Bedside Urine pH 6 Bedside Urine Protein - Negative Bedside Urine Urobilinogen - Negative Bedside Urine Nitrite - Negative Bedside Urine Leukocytes - Negative Esterase Discharge Plan Departure Patient Disposition: Home Clinical Impression: Chronic alcohol use Gastritis Qualifiers: Gastritis type: unspecified gastritis Chronicity: unspecified Gastritis bleeding: presence of bleeding unspecified Qualified Code(s): K29.70 - Gastritis, unspecified, without bleeding Instructions: DI for Gastritis, DI for Gastrointestinal Bleeding Activity Restrictions/Additional Instructions: You have been diagnosed with [epigastric pain likely gastritis and upper GI bleed. Lower GI bleed test was negative by Hemoccult. Labs are assuring and abdomen/pelvis CT without acute findings.]. What to do: *Take your medications as directed. Please take Protonix daily starting tomorrow to help protecting her stomach. Use Zofran as needed for nausea so you can hydrate. Please avoid fatty, spicy, acidic food. Please avoid alcohol beverages since this causes gastritis, varies, ulcers, and/pancreatitis. This medication have been transmitted to [facility] *Follow up with your primary care provider in 2-3 days, call for an appointment. Let them know you were seen in the ED and that we asked you to be seen in follow up. *Return to ED if you have any new, worsening, or concerning symptoms, such as [chest pain, breathing difficulty, unable to tolerate fluids, near syncope, fever, worsening pain, increasing bleeding in vomiting or diarrhea]. Prescriptions: New ondansetron 4 mg tablet,disintegrating 4 mg PO Q8-12H PRN (Reason: nausea and vomiting) Qty: 10 RF: 0 pantoprazole [Protonix] 40 mg tablet,delayed release (DR/EC) 40 mg PO DAILY Qty: 14 RF: 0 No Action hydrocodone-acetaminophen 5-325 mg tablet 1 tab PO Q4-6H PRN (Reason: pain) Qty: 10 RF: 0 ondansetron 4 mg tablet,disintegrating 4 mg PO TID-QID PRN (Reason: nausea and vomiting) Qty: 10 RF: 0 Referrals: [facility] [Outside] <Gisell Lozano DO - Last Filed: 07/04/20 08:02> Cosign ED Attending Martínezature Attestation: I was immediately available in the department for consultation. Documentation has been reviewed. I agree with assessment and plan.
--- NOTE | 2020-07-03 16:51 | PC.NURSE ---
Pt noted to be off cardiac monitoring, RN into Pt room. Pt naked squatting in trash can to urinate. Pt advised to use call [facility] as directed for assistance to bathroom. Pt to and from bathroom with steady gait. Assisted back into bed and call [facility] in reach. appears drowsy, ETOH 0.346. Nursing judgment to hold dilaudid dose. Wesly, CORE C[employer]TER made aware. Order for GI cocktail obtained.
[2020-07-03] MEDS: MAG HYDROX/ALUMINUM/SIMETH SUS 20 ML, LIDOCAINE VISCOUS 2% 15 ML PO (17:26)
== END 2020-07-03 18:49 | disposition home or self-care (01) ==
PROVIDERS: Emergency Provider Nurse Practitioner Family
DX: F10.129 Alcohol abuse with intoxication, unspecified (principal); Y90.8 Blood alcohol level of 240 mg/100 ml or more; K29.70 Gastritis, unspecified, without bleeding; R11.2 Nausea with vomiting, unspecified; R19.7 Diarrhea, unspecified; R06.02 Shortness of breath
CPT/HCPCS: 36415; 71045; 74177; 80053; 80320; 81003; 81025; 82272; 83690; 83735; 85025; 85610; 85730; 86850; 86900; 86901; 96365; 96366; 96375; 99284; C9113; J2405; Q9967